=== PATIENT | male | born 1950 | race Caucasian/White ===

== ENCOUNTER → 2016-04-18 | Outpatient (CLI) | payer BC ==
[~2016-04-18] MED LIST: ALEVE220 MG PO; AMBIEN 10MG10 MG PO; AMOXICILLIN 8751 TAB PO; ASPIRIN 81M81 MG/TA2 PO; ASPIRIN E.C. 8181 MG PO; ASTELIN137 MCG/Ac NS; BUPROPION HCL150 MG PO; CARDI-OMEGA1000 MG PO; FLEXERIL PO; FOLIC ACID1 MG PO; FUROSEMIDE20 MG PO; HYTRIN 2MG CAPSU2 MG PO; LASIX 20MG TABL20 MG PO; LIPITOR40 MG PO; LISINOPRIL/HCTZ1 TA2 PO; LISINOPRIL/HCTZ1 TAB PO; METHOTREXATE25 MG/ML SC; NASONEX SPRAY NAS; OXYCODONE HYDROC5 M1 PO; OXYCODONE5 MG PO; PLAQUENIL 200M200 MG PO; PRILOSEC 20MG20 MG PO; SPIRIVA18 MCG IH; SULFAZINE500 MG PO; THE MEDICINE S300 M1 PO; ZYRTEC 10MG10 MG PO; ZYRTEC10 MG PO
== END ==
LOC: SUN.DIA 11:36
DX: E11.42 Type 2 diabetes mellitus with diabetic polyneuropathy (principal); Z68.35 Body mass index [BMI] 35.0-35.9, adult; Z71.3 Dietary counseling and surveillance; I10 Essential (primary) hypertension; E78.5 Hyperlipidemia, unspecified

== ENCOUNTER 2018-01-18 13:13 | Outpatient (RCR) | payer BC | END 2018-01-23 05:54 | disposition home or self-care (01) | LOC: COL.CR 13:13 | DX: Z48.812 Encounter for surgical aftercare following surgery on the circulatory system (principal); Z95.5 Presence of coronary angioplasty implant and graft ==

== ENCOUNTER 2018-08-23 14:00 | Outpatient (RCR) | payer BC | END 2018-09-26 | disposition home or self-care (01) | LOC: WSPT | DX: M54.42 Lumbago with sciatica, left side (principal); M54.41 Lumbago with sciatica, right side ==

== ENCOUNTER 2019-02-03 16:00 | Outpatient (RCR) | payer BC | END 2019-02-05 09:55 | disposition home or self-care (01) | LOC: WSPT 16:00 | DX: M43.00 Spondylolysis, site unspecified (principal) ==

== ENCOUNTER 2020-07-14 16:58 | Outpatient (RCR) | payer BC | END 2020-07-16 12:32 | disposition still patient (30) | LOC: COL.CR 16:58 | DX: Z48.812 Encounter for surgical aftercare following surgery on the circulatory system (principal); Z95.2 Presence of prosthetic heart valve ==

== ENCOUNTER 2020-09-03 07:39 | Day surgery (SDC) | payer BC ==
[~2020-09-03] VITALS: Ht 182.9 cm; Wt 93.4 kg
[2020-09-03 07:52] VITALS: BP 114/82; PULSE 91; TEMP 98.4
[2020-09-03] MEDS ORDERED: CYMBALTA 60MG60 MG PO (08:16)
[2020-09-03] MEDS ORDERED: PLAVIX 75MG TAB75 MG PO (08:16)
[2020-09-03] MEDS ORDERED: PROTONIX 40MG T40 MG PO (08:17)
[2020-09-03] MEDS ORDERED: FLOMAX 0.40.4 MG/CAP PO (08:17)
[2020-09-03] MEDS ORDERED: VIAGRA 25MG TAB25 MG PO (08:18)
[2020-09-03] MEDS ORDERED: TRELEGY ELLIPT1 EACH IH (08:18)
[2020-09-03] MEDS ORDERED: DECADRON OPHTH D5 ML OP (08:19)
[2020-09-03 08:55] VITALS: BP 106/68; PULSE 75; TEMP 97.9
--- NOTE | 2020-09-03 08:55 | NUR ---
Patient returned to [facility] via cart, transfered to chair. Denies discomfort. Postop vital signs started. Blood pressure is low, but consistent with preop basline. Patient request coffee and muffin.
[2020-09-03 09:00] VITALS: BP 115/69; PULSE 74
--- NOTE | 2020-09-03 09:00 | NUR ---
Patient sitting up comfortably in chair. Vital signs stable. Tolerating food and drink well. Denies and needs.
[2020-09-03 09:15] VITALS: BP 104/72; PULSE 74
--- NOTE | 2020-09-03 09:15 | NUR ---
Patient sitting comfortably in chair, denies any discomfort. Vital sign remain stable. D/C IV with no complications. Reviewed discharge instructions and education material with patient, verbalizes understanding. Instructed patient to call son for ride home, then to dress and call for transport to vehicle.
--- NOTE | 2020-09-03 09:50 | NUR ---
Transported patient via wheelchair with belongings and discharge instruction down to son's personal vehicle.
[2020-09-03 11:46] VITALS: BP 106/58; PULSE 75
== END 2020-09-03 09:50 | disposition home or self-care (01) ==
LOC: SDCO 07:39
DX: Z12.11 Encounter for screening for malignant neoplasm of colon (principal); D12.0 Benign neoplasm of cecum; D12.5 Benign neoplasm of sigmoid colon; K64.8 Other hemorrhoids; K57.30 Diverticulosis of large intestine without perforation or abscess without bleeding; K21.9 Gastro-esophageal reflux disease without esophagitis; I10 Essential (primary) hypertension; I65.23 Occlusion and stenosis of bilateral carotid arteries; I25.2 Old myocardial infarction; I25.10 Atherosclerotic heart disease of native coronary artery without angina pectoris; J43.9 Emphysema, unspecified; E66.9 Obesity, unspecified; D64.9 Anemia, unspecified; M19.90 Unspecified osteoarthritis, unspecified site; G47.33 Obstructive sleep apnea (adult) (pediatric); Z95.1 Presence of aortocoronary bypass graft; Z79.899 Other long term (current) drug therapy; Z79.82 Long term (current) use of aspirin; Z79.02 Long term (current) use of antithrombotics/antiplatelets; Z99.89 Dependence on other enabling machines and devices; Z87.891 Personal history of nicotine dependence; Z85.828 Personal history of other malignant neoplasm of skin
CPT/HCPCS: J2704; J3010; J7030

== ENCOUNTER 2020-09-30 11:00 | Outpatient (RCR) | payer BC ==
[~2020-09-30 11:00] MED LIST changes: +CYMBALTA 60MG60 MG PO; +DECADRON OPHTH D5 ML OP; +FLOMAX 0.40.4 MG/CAP PO; +PLAVIX 75MG TAB75 MG PO; +PROTONIX 40MG T40 MG PO; +TRELEGY ELLIPT1 EACH IH; +VIAGRA 25MG TAB25 MG PO
== END 2020-10-18 09:23 | disposition home or self-care (01) ==
LOC: PT.GENESIS 11:00
DX: M25.561 Pain in right knee (principal); M25.562 Pain in left knee; Z96.652 Presence of left artificial knee joint

== ENCOUNTER 2020-10-04 16:28 | Outpatient (RCR) | payer SELFPAY | END 2020-10-17 | disposition home or self-care (01) | LOC: COL.CR | DX: Z02.89 Encounter for other administrative examinations (principal) ==

== ENCOUNTER 2020-12-10 10:29 | Day surgery (SDC) | payer BC ==
[~2020-12-10] VITALS: Ht 180.3 cm; Wt 90.5 kg
[2020-12-10] MEDS ORDERED: CRESTOR20 MG PO (10:52)
[2020-12-10] MEDS ORDERED: PRINIVIL10 MG PO (10:54)
[2020-12-10] MEDS ORDERED: COREG 6.256.25 MG/TA PO (10:55)
[2020-12-10] MEDS ORDERED: ALDACTONE 25MG25 M1 PO (10:58)
[2020-12-10 11:10] VITALS: BP 110/81; PULSE 86; TEMP 98.6
[2020-12-10 13:00] VITALS: BP 94/63; PULSE 76; TEMP 97.7
[2020-12-10 13:15] VITALS: BP 92/66; PULSE 61
[2020-12-10 13:30] VITALS: BP 111/77; PULSE 59
--- NOTE | 2020-12-10 14:15 | NUR ---
1300 - Pt returns from endo procedure via cart and RN assist to [facility]. Pt ambulates from cart to recliner with RN assist. Monitors on and alarms set. Call light within reach. Pt alert and oriented. Pt requests soda and muffine. Pt denies any pain or nausea. 1315 - Pt taking food and drink well. No complications noted. 1330 - Discharge instructions given to pt. All questions answered to patient's satisfaction. Handed to pt are a thank you card and discharge information. 1415 - Pt transferred out of the hospital via wheelchair and RN assist, to private vehicle driven by .
== END 2020-12-10 14:15 | disposition home or self-care (01) ==
LOC: SDCO 10:29
DX: Z12.11 Encounter for screening for malignant neoplasm of colon (principal); D12.0 Benign neoplasm of cecum; D12.5 Benign neoplasm of sigmoid colon; K64.1 Second degree hemorrhoids; K57.30 Diverticulosis of large intestine without perforation or abscess without bleeding; I25.10 Atherosclerotic heart disease of native coronary artery without angina pectoris; I25.2 Old myocardial infarction; J44.9 Chronic obstructive pulmonary disease, unspecified; G47.33 Obstructive sleep apnea (adult) (pediatric); K21.9 Gastro-esophageal reflux disease without esophagitis; M19.90 Unspecified osteoarthritis, unspecified site; Z20.822 Contact with and (suspected) exposure to COVID-19; Z95.1 Presence of aortocoronary bypass graft; Z99.89 Dependence on other enabling machines and devices; Z79.82 Long term (current) use of aspirin; Z79.899 Other long term (current) drug therapy; Z87.891 Personal history of nicotine dependence
CPT/HCPCS: J2704; J7120

== ENCOUNTER 2021-03-18 15:18 | Emergency (ER) | payer BC ==
[~2021-03-18] VITALS: Ht 182.9 cm; Wt 96.4 kg
[~2021-03-18 15:18] MED LIST changes: +ALDACTONE 25MG25 M1 PO; +COREG 6.256.25 MG/TA PO; +CRESTOR20 MG PO; +PRINIVIL10 MG PO
[2021-03-18 16:00] VITALS: TEMP 98.3
[2021-03-18 16:54] LABS: BASO % 0.6 % (0.0-2.0); EOS % 0.6 % (0.0-4.0); GRAN # 4.6 K/mm3 (1.4-6.5); GRAN % 65.8 % (42.2-75.2); HEMATOCRIT 43.4 % (42.0-52.0); HEMOGLOBIN 13.8 g/dl (13.5-18.0); LYMPH % 13.6 % (20.0-51.0); MEAN CELL VOLUME 100 fl (80.0-100.0); MEAN CORPUSCULAR HEMOGLOBIN 32 pg (27-31); MEAN CORPUSCULAR HGB CONC 32 g/dl (33.0-37.0); MONO # 1.3 K/mm3 (0.1-0.6); MONO % 19.1 % (1.7-9.3); PLATELET COUNT 143 K/mm3 (130-400); RED BLOOD COUNT 4.36 M/mm3 (4.20-5.60); REDCELL DISTRIBUTION WIDTH-CV 14.5 % (11.5-14.5)
[2021-03-18 17:11] LABS: ALBUMIN 3.8 gm/dL (3.4-4.8); C-REACTIVE PROTEIN 10.27 mg/dL (0.00-0.50); CALCIUM 9.3 mg/dL (8.4-10.2); CREATININE, serum 0.78 mg/dL (0.72-1.25); POTASSIUM 3.7 mmol/L (3.5-4.5); TOTAL PROTEIN 7.1 gm/dL (6.2-8.1)
[2021-03-18] MEDS ORDERED: DOXYCYCLINE 10100 MG PO ×3 (17:43→19:08)
[2021-03-18] MEDS ORDERED: PREDNISONE20 MG PO ×3 (17:43→19:08)
[2021-03-18 18:08] VITALS: BP 115/66; PULSE 87
== END 2021-03-18 18:08 | disposition home or self-care (01) ==
LOC: COL.ER 15:18
PROVIDERS: Emergency Medicine
DX: U07.1 COVID-19 (principal); J44.1 Chronic obstructive pulmonary disease with (acute) exacerbation; I25.10 Atherosclerotic heart disease of native coronary artery without angina pectoris; F32.A Depression, unspecified; M32.9 Systemic lupus erythematosus, unspecified; Z79.899 Other long term (current) drug therapy; Z79.02 Long term (current) use of antithrombotics/antiplatelets; Z79.82 Long term (current) use of aspirin; Z79.51 Long term (current) use of inhaled steroids
CPT/HCPCS: J7030; J7512

== ENCOUNTER 2021-06-13 14:08 | Outpatient (RCR) | payer BC ==
[~2021-06-13 14:08] MED LIST changes: +DOXYCYCLINE 10100 MG PO; +PREDNISONE20 MG PO
== END 2021-06-16 | disposition home or self-care (01) ==
LOC: COL.CR
DX: Z48.812 Encounter for surgical aftercare following surgery on the circulatory system (principal); I34.0 Nonrheumatic mitral (valve) insufficiency

== ENCOUNTER 2021-07-13 15:06 | Outpatient (RCR) | payer BC | END 2021-07-13 15:15 | disposition home or self-care (01) | LOC: COL.CR 15:06 | DX: Z48.812 Encounter for surgical aftercare following surgery on the circulatory system (principal); I34.0 Nonrheumatic mitral (valve) insufficiency ==

== ENCOUNTER 2021-10-15 11:58 | Emergency (ER) | payer BC ==
[~2021-10-15] VITALS: Ht 180.3 cm; Wt 94.5 kg
[2021-10-15 12:05] VITALS: BP 97/65; PULSE 87; TEMP 98.8
== END 2021-10-15 13:12 | disposition home or self-care (01) ==
LOC: COL.ER 11:58
DX: S91.012A Laceration without foreign body, left ankle, initial encounter (principal); L03.116 Cellulitis of left lower limb; W26.8XXA Contact with other sharp object(s), not elsewhere classified, initial encounter

== ENCOUNTER → 2021-11-03 | Outpatient (CLI) | payer BC | LOC: COL.VAS 12:24 | DX: M79.89 Other specified soft tissue disorders (principal) ==

== ENCOUNTER → 2021-12-06 | Outpatient (CLI) | payer BC | LOC: COL.VAS 10:24 | DX: R09.89 Other specified symptoms and signs involving the circulatory and respiratory systems (principal) ==